=== PATIENT | male | born 1985 | race Asian ===

== ENCOUNTER 2022-04-08 20:58 | Emergency (ER) | payer OTHER ==
[2022-04-08 21:09] VITALS: BP 123/75; TEMP 98.8; BMI 27.1
[2022-04-08] MEDS ORDERED: predniSONE 20 MG TABLET (UD) PO ONE (21:22)
[2022-04-08] MEDS ORDERED: ALBUTEROL SO4 2.5/IPRATROPIUM 0.5 INH SOL 3 ML VIAL.NEB. NEB ONE (21:30)
[2022-04-08] MEDS ORDERED: predniSONE 20 MG TABLET (UD) ONE (21:30)
[2022-04-08] MEDS ORDERED: ALBUTEROL SO4 2.5/IPRATROPIUM 0.5 INH SOL 3 ML VIAL.NEB. NEB SCH (21:30)
[2022-04-08 22:57] VITALS: PULSE 96; RESP 20
== END 2022-04-08 23:00 | disposition home or self-care (01) ==
LOC: JERFT 20:58
PROC: 3E0F7GC Introduction of Other Therapeutic Substance into Respiratory Tract, Via Natural or Artificial Opening (ICD-10-PCS; principal; 2022-04-08)
DX: J20.9 Acute bronchitis, unspecified (principal)
CPT/HCPCS: 0241U-QW; 99283-25

== ENCOUNTER 2024-09-10 20:31 | Emergency (ER) | payer OTHER ==
[2024-09-10 20:36] VITALS: BP 127/73; PULSE 94; RESP 17; TEMP 98.8; BMI 27.1
[2024-09-10 22:07] LABS: BASO % 0.5 % (0-2.0); EOS % 1.5 % (0-4.5); HEMATOCRIT 41.9 % (35.4-49); HEMOGLOBIN 13.2 GM/dL (11.7-16.9); LYMPH % 21.1 % (8-40); MCH 22.5 pg (25.7-33.7); MCHC 31.5 g/dl (32.0-35.9); MEAN CELL VOLUME 71.5 fl (80-96); MEAN PLT VOLUME 9.2 fl (7.5-11.1); MONO % 8.9 % (3.8-10.2); PLATELET COUNT 202 10^3/uL (134-434); RBC 5.85 M/mm3 (4.00-5.60); RDW 15.5 % (11.9-15.9); WHITE BLOOD COUNT 9.7 K/mm3 (4.0-10.0)
[2024-09-10 22:12] LABS: INR 1.12 (0.83-1.09); PROTHROMBIN TIME (PATIENT) 12.2 SEC (9.7-13.0)
[2024-09-10 22:14] LABS: ACTIVATED PTT 33.3 SECONDS (25.2-36.5)
[2024-09-10 22:37] LABS: POTASSIUM 4.3 mmol/L (3.5-5.1)
[2024-09-10 22:40] LABS: ALBUMIN 3.8 g/dl (3.4-5.0); BLOOD UREA NITROGEN 9.4 mg/dL (7-18); CALCIUM 8.7 mg/dL (8.5-10.1)
[2024-09-10 22:43] LABS: CREATININE 0.9 mg/dL (0.55-1.3)
[2024-09-10 22:45] LABS: BILIRUBIN,TOTAL 0.4 mg/dL (0.2-1); TOT PROT 7.7 g/dl (6.4-8.2)
[2024-09-10 23:05] LABS: ERYTHROCYTE SEDIMENTATION RATE 24 mm/hr (0-10)
[2024-09-11] MEDS ORDERED: SULFAMETHOXAZOLE/TRIMETHOPRIM 800MG/160MG D.S. TABLET ONE (00:27)
[2024-09-11] MEDS: SULFAMETHOXAZOLE/TRIMETHOPRIM 800MG/160MG D.S. TABLET PO ONE (00:30)
== END 2024-09-11 00:34 | disposition home or self-care (01) ==
LOC: JER 20:31
DX: L02.02 Furuncle of face (principal)
CPT/HCPCS: 36415; 70487-TC; 80053; 85025; 85610; 85651; 85730; 86140; 86850; 86900; 86901; 99285-25